=== PATIENT | female | born 1995 | race Caucasian/White ===

== ENCOUNTER 2017-05-28 17:55 | Emergency (ER) | payer OTHER ==
--- NOTE | 2017-05-28 20:47 | C.PDOC ---
History Of Present Illness The patient reports 1 day history of fever which is associated cough and bodyaches. The patient reports that she just traveled from [place]. Denies chest pain, hemoptysis, SOB, vomiting, or diarrhea. Time Seen by Provider: 05/28/17 20:35 Chief Complaint (Nursing): Flu-like Symptoms History Per: Patient History/Exam Limitations: no limitations Current Symptoms Are (Timing): Still Present Recent travel outside of the [place]: No Past Medical History Vital Signs: Last Vital Signs Temp 98.9 F 05/28/17 22:24 Pulse 87 05/28/17 22:24 Resp 20 05/28/17 22:24 BP 118/70 05/28/17 22:24 Pulse Ox 98 05/29/17 16:41 - Medical History PMH: Asthma Family History: States: Unknown Family Hx - Social History Hx Tobacco Use: No Hx Alcohol Use: Yes Hx Substance Use: No - Immunization History Hx Tetanus Toxoid Vaccination: No Hx Influenza Vaccination: No Hx Pneumococcal Vaccination: No Review Of Systems Except As Marked, All Systems Reviewed And Found Negative. Physical Exam - Physical Exam Appears: Non-toxic, No Acute Distress Skin: Normal Color, Warm, No Rash Head: Atraumatic, Normacephalic Eye(s): bilateral: Normal Inspection Oral Mucosa: Moist Throat: No Erythema, No Exudate Neck: Normal ROM, Supple Lymphatic: Normal Exam Chest: Symmetrical, No Tenderness Cardiovascular: Rhythm Regular, No Friction Rub, No Murmur Respiratory: Normal Breath Sounds, No Rales, No Rhonchi, No Stridor, No Wheezing Gastrointestinal/Abdominal: Bowel Sounds (active), Soft, No Tenderness Back: Normal Inspection, No CVA Tenderness Extremity: Normal ROM, No Tenderness, No Swelling Neurological/Psych: Oriented x3, Normal Speech, Normal Motor Gait: Steady ED Course And Treatment - Laboratory Results Lab Interpretation: Abnormal ((+) influenza) O2 Sat by Pulse Oximetry: 98 (on RA) Pulse Ox Interpretation: Normal Medical Decision Making Medical Decision Making: On re-exam, the patient is resting comfortably. Lungs are CTA, heart is RRR, abdomen is soft, non-tender and the patient is tolerating PO well. Ambulatory in the ED with steady gait. Follow up with the medical doctor within 1-2 days. Return if worsened. Disposition - Disposition Referrals: Jesus Monge MD [Staff Provider] - Disposition: HOME/ ROUTINE Disposition Time: 22:13 Condition: GOOD Additional Instructions: Follow up with the medical doctor/clinic within 1-2 days without fail. Return if worsened. Prescriptions: Albuterol 0.5% [Albuterol 0.5% Inhal Katherine (2.5 mg/0.5 ml) UD] 0.5 ml IH Q6 PRN # 20 neb PRN Reason: Wheezing Albuterol HFA [Ventolin HFA 90 mcg/actuation (8 g)] 1 puff IH Q6 PRN #60 puff PRN Reason: Wheezing Oseltamivir [Tamiflu] 75 mg PO BID #9 cap predniSONE [Prednisone] 20 mg PO BID #10 tab Instructions: Influenza (ED) Forms: [facility] (Estonian), Work Excuse - Clinical Impression Clinical Impression: Influenza
[2017-05-28] MEDS ORDERED: Albuterol-Ipratrop 3 mg / 0.5 (3 ml) UD INH STA (21:14)
[2017-05-28] MEDS ORDERED: Albuterol-Ipratrop 3 mg / 0.5 (3 ml) UD ONE (21:29)
[2017-05-28 22:24] VITALS: BP 118/70; PULSE 87; RESP 20; TEMP 98.9
--- NOTE | 2017-05-29 08:51 | RAD ---
Chest x-ray two views History: Fever and cough. Comparison: 05/28/2017 Findings: No focal infiltrate or effusion. Heart size within normal limits. Impression: No focal infiltrate or effusion.
[2017-05-29 14:45] VITALS: O2SAT 98
== END 2017-05-28 22:25 | disposition home or self-care (01) ==
LOC: C.ER 17:55
DX: J11.1 Influenza due to unidentified influenza virus with other respiratory manifestations (principal)
CPT/HCPCS: 71046; 87804; 96372; 99284; J1885

== ENCOUNTER 2018-02-20 10:11 | Emergency (ER) | payer OTHER ==
[2018-02-20 10:21] VITALS: BP 112/74; PULSE 114; TEMP 99.1; O2SAT 99
[2018-02-20 10:31] VITALS: RESP 18
--- NOTE | 2018-02-20 11:35 | C.PDOC ---
History Of Present Illness 22 y/o female, w/PMhx of asthma, presents to the ER complaining of shortness of breath, wheezing, and non-productive cough which has been present for the past 3 days. Patient states that she usually feels SOB and has wheezing when the seasons change. Patient reports that she does not have inhaler at home. Currently, patient denies having SOB, CP, fever, chills, nausea, and vomiting. Time Seen by Provider: 02/20/18 10:26 Chief Complaint (Nursing): Shortness Of Breath History Per: Patient History/Exam Limitations: no limitations Onset/Duration Of Symptoms: Days Current Symptoms Are (Timing): Still Present Severity: Moderate Past Medical History Reviewed: Historical Data, Nursing Documentation, Vital Signs Vital Signs: Last Vital Signs Temp 99.1 F 02/20/18 10:17 Pulse 114 H 02/20/18 10: Resp 18 02/20/18 10:29 BP 112/74 02/20/18 10:17 Pulse Ox 99 02/20/18 10:17 - Medical History PMH: Asthma Surgical History: No Surg Hx Family History: States: No Known Family Hx - Social History Hx Tobacco Use: No Hx Alcohol Use: Yes Hx Substance Use: No - Immunization History Hx Tetanus Toxoid Vaccination: No Hx Influenza Vaccination: No Hx Pneumococcal Vaccination: No Review Of Systems Except As Marked, All Systems Reviewed And Found Negative. Constitutional: Negative for: Fever, Chills Respiratory: Positive for: Cough, Shortness of Breath (currently resolved), Wheezing Physical Exam - Physical Exam Appears: Non-toxic, Other (NARD) Skin: Normal Color, Warm, Dry Head: Atraumatic, Normacephalic Eye(s): bilateral: Normal Inspection Nose: Normal Oral Mucosa: Moist Neck: Supple Chest: Symmetrical Cardiovascular: Rhythm Regular Respiratory: Normal Breath Sounds, No Rales, No Rhonchi, No Wheezing Gastrointestinal/Abdominal: Normal Exam, Soft, No Tenderness, No Guarding, No Rebound Neurological/Psych: Oriented x3, Normal Speech ED Course And Treatment O2 Sat by Pulse Oximetry: 99 (RA) Pulse Ox Interpretation: Normal Medical Decision Making Medical Decision Making: Patient with no wheezing or respiratory distress. States that prednisone has helped in the past with asthma exacerbation symptoms. Rx written for albuterol HFA, flovent HFA, prednisone PO. Patient stable for discharge home. Imaging or labwork not clinically indicated at this time. Disposition - Disposition Disposition: HOME/ ROUTINE Disposition Time: 11:00 Condition: GOOD Additional Instructions: RUBA DOWNS, thank you for letting us take care of you today. Your provider was Jonna Sherwood MD and you were treated for ASTHMA. The emergency medical care you received today was directed at your acute symptoms. If you were prescribed any medication, please fill it and take as directed. It may take several days for your symptoms to resolve. Return to the Emergency Department if your symptoms worsen, do not improve, or if you have any other problems. Please contact your doctor or call one of the physicians/clinics you have been referred to that are listed on the Patient Visit Information form that is included in your discharge packet. Bring any paperwork you were given at discharge with you along with any medications you are taking to your follow up visit. Our treatment cannot replace ongoing medical care by a primary care provider outside of the emergency department. Thank you for allowing the [facility] team to be part of your care today. If you had an X-Ray or CT scan: A Radiologist will review the ED reading if any change in treatment is needed we will contact you. If you had a blood, urine, or wound culture: It will take several days for the results, if any change in treatment is needed we will contact you. If you had an STI test: It will take 48 hours for the results. Please call after 1 week if you have not heard back. Prescriptions: RX: Albuterol HFA [Ventolin HFA 90 mcg/actuation (8 g)] 2 puff IH [id number] PRN #1 inh PRN Reason: Wheezing Fluticasone Propionate [Flovent Hfa] 0.044 mg IH BID #1 inh RX: predniSONE [predniSONE Tab] 20 mg PO DAILY #5 tab Instructions: Asthma, Adult (DC) Forms: [employer] (Finnish), Work Excuse - Clinical Impression Clinical Impression: Asthma exacerbation - Scribe Statement The provider has reviewed the documentation as recorded by the Scribe Sonny Vines Provider Attestation: All medical record entries made by the Scribe were at my direction and personally dictated by me. I have reviewed the chart and agree that the record accurately reflects my personal performance of the history, physical exam, medical decision making, and the department course for this patient. I have also personally directed, reviewed, and agree with the discharge instructions and disposition.
== END 2018-02-20 11:04 | disposition home or self-care (01) ==
LOC: C.ER 10:11
DX: J45.901 Unspecified asthma with (acute) exacerbation (principal)

== ENCOUNTER 2018-03-18 14:39 | Emergency (ER) | payer OTHER ==
[2018-03-18 14:48] VITALS: TEMP 97.8
--- NOTE | 2018-03-18 15:00 | C.PDOC ---
History Of Present Illness 22 y/o female with history of asthma presents to ED with c/o sharp constant chest pain for 5 days radiating to back associated with nasal congestion and mild headache. Patient states symptoms do not feel like prior asthma exacerbations and denies fever, chills, sob, nausea, vomiting, dysuria, bloody/dark stool or any other complaints at this time. Time Seen by Provider: 03/18/18 15:00 Chief Complaint (Nursing): Cough, Cold, Congestion History Per: Patient History/Exam Limitations: no limitations Onset/Duration Of Symptoms: Days Current Symptoms Are (Timing): Still Present Past Medical History Reviewed: Historical Data, Nursing Documentation, Vital Signs Vital Signs: Last Vital Signs Temp 97.8 F 03/18/18 14:45 Pulse 102 H 03/18/18 14:45 Resp 20 03/18/18 14:45 BP 125/88 03/18/18 14:45 Pulse Ox 100 03/18/18 14:45 - Medical History PMH: Asthma Surgical History: No Surg Hx Family History: States: No Known Family Hx - Social History Hx Tobacco Use: No Hx Alcohol Use: Yes Hx Substance Use: No - Immunization History Hx Tetanus Toxoid Vaccination: No Hx Influenza Vaccination: No Hx Pneumococcal Vaccination: No Review Of Systems Constitutional: Negative for: Fever, Chills ENT: Positive for: Nose Congestion Cardiovascular: Positive for: Chest Pain Respiratory: Negative for: Cough, Shortness of Breath Gastrointestinal: Negative for: Nausea, Vomiting Genitourinary: Negative for: Dysuria, Hematuria, Vaginal Discharge Neurological: Positive for: Headache. Negative for: Weakness, Numbness Physical Exam - Physical Exam Appears: Non-toxic, No Acute Distress Skin: Warm, Dry, No Rash Head: Atraumatic, Normacephalic Eye(s): bilateral: Normal Inspection Oral Mucosa: Moist Neck: Normal ROM, Supple Cardiovascular: Rhythm Regular Respiratory: Normal Breath Sounds, No Rales, No Rhonchi, No Wheezing Gastrointestinal/Abdominal: Soft, No Tenderness, No Guarding, No Rebound Extremity: Normal ROM, No Pedal Edema, Capillary Refill (<2 seconds) Neurological/Psych: Oriented x3, Normal Speech, Normal Cognition ED Course And Treatment O2 Sat by Pulse Oximetry: 100 Medical Decision Making Medical Decision Making: Well appearing 22 yr old F p/w chest pain, congestion, mild NATION. NATION not worst of life, not sudden in onset. No meningeal signs. No FND. No fall or trauma. Chest pain w/ out radiation. No STARKEY, orthopnea, leg swelling or PND. Mild b/l nasal congestion. Likely chest wall pain vs viral uri. Plan: ecg, cxr, Flu test and Rapid strep test ordered. ECG: NSR @90BPM, NO STEMI CXR: IMPRESSION: No focal consolidation, significant pleural effusion, or definite pneumothorax identified. 1702 serology negative no cervical or posterior adenopathy remains w/ out wheezing pt notes she has inhaler at home likely viral uri vs costocondritis. will have pt followup w/ pulm as she is requesting pulm f/u for her asthma will also have pt f/u w/ cards given cp as well as her pmd. pt is agreeable in nad, w/ pain improved, clear for d/c home Disposition - Disposition Referrals: [facility] [Outside] Benedict De La Fuente MD [Staff Provider] - Coy Gonsalez MD [Staff Provider] - Disposition: HOME/ ROUTINE Disposition Time: 17:05 Condition: GOOD Additional Instructions: TAKE OVER THE COUNTER MOTRIN OR TYLENOL WRITTEN ON THE BOTTLE FOR THE CHEST PAIN. FOLLOW UP WITH YOUR PRIMARY DOCTOR OR OUR CLINIC AND SEE THE SPECIALISTS RUBA DOWNS, thank you for letting us take care of you today. Your provider was Kenneth Gallegos and you were treated for CHEST/SINUS PAIN. The emergency medical care you received today was directed at your acute symptoms. If you were prescribed any medication, please fill it and take as directed. It may take several days for your symptoms to resolve. Return to the Emergency Department if your symptoms worsen, do not improve, or if you have any other problems. Please contact your doctor or call one of the physicians/clinics you have been referred to that are listed on the Patient Visit Information form that is included in your discharge packet. Bring any paperwork you were given at discharge with you along with any medications you are taking to your follow up visit. Our treatment cannot replace ongoing medical care by a primary care provider outside of the emergency department. Thank you for allowing the [facility] team to be part of your care today. If you had an X-Ray or CT scan: A Radiologist will review the ED reading if any change in treatment is needed we will contact you. If you had a blood, urine, or wound culture: It will take several days for the results, if any change in treatment is needed we will contact you. If you had an STI test: It will take 48 hours for the results. Please call after 1 week if you have not heard back. Instructions: Chest Pain That Is Not Caused by the Heart (DC) Forms: [employer] [facility] (Burkinan) - Clinical Impression Clinical Impression: Chest wall pain - Scribe Statement The provider has reviewed the documentation as recorded by the Tamraibboaz Abarca All medical record entries made by the Tamraibboaz were at my direction and personally dictated by me. I have reviewed the chart and agree that the record accurately reflects my personal performance of the history, physical exam, medical decision making, and the department course for this patient. I have also personally directed, reviewed, and agree with the discharge instructions and disposition.
[2018-03-18 15:52] LABS: INFLUENZA A B NEGATIVE FOR FLU A/B (NEGATIVE)
--- NOTE | 2018-03-18 16:10 | RAD ---
HISTORY: cp COMPARISON: Chest x-ray performed 05/28/17 TECHNIQUE: Chest PA and lateral FINDINGS: LUNGS: No focal consolidation. Please note that chest x-ray has limited sensitivity for the detection of pulmonary masses. PLEURA: No significant pleural effusion identified. No definite pneumothorax . CARDIOVASCULAR: Heart size appears within normal limits. No atherosclerotic calcification present. OSSEOUS STRUCTURES: No acute osseous abnormality identified. VISUALIZED UPPER ABDOMEN: Unremarkable. OTHER FINDINGS: None. IMPRESSION: No focal consolidation, significant pleural effusion, or definite pneumothorax identified.
[2018-03-18 17:15] VITALS: BP 112/85; PULSE 81; RESP 16
[2018-03-18 18:15] VITALS: O2SAT 100
--- NOTE | 2018-03-20 21:33 | CARD ---
APPROVED REPORT Date of service: 03/18/2018 EKG Measurement Heart [id number] <Conclusion> Sinus rhythm with short NH Otherwise normal ECG
== END 2018-03-18 17:14 | disposition home or self-care (01) ==
LOC: C.ER 14:39
DX: R07.89 Other chest pain (principal)